=== PATIENT | female | born 1980 | race Caucasian/White ===

== ENCOUNTER 2024-08-25 12:31 | Emergency (ER) | payer BC, SELFPAY ==
[2024-08-25 12:33] VITALS: BP 118/81
[2024-08-25 12:50] LABS: % Basophils 0.7 % (0-2); % Immature Granulocytes 0.2 % (0-0.5); % Monocytes 7.3 % (1.7-9.3); % Neutrophils 49.8 % (42.2-75.2); Absolute Lymphocytes 1.7 10^3/uL (1.2-3.4); Absolute Monocytes 0.3 10^3/uL (0.1-0.6); Hematocrit 38.8 % (37.0-47.0); Hemoglobin 13.2 g/dL (12.0-16.0); Mean Corpuscular Hgb 30.5 pg (27.0-31.0); Mean Corpuscular Volume 89.6 fL (81.0-99.0); Mean Platelet Volume 9.2 fL (7.4-10.4); Nucleated Red Blood Cells % 0 %; Platelet Count 313 10^3/uL (130-400); Red Blood Cell Count 4.33 10^6/uL (4.20-5.40); Red Cell Dist. Width 13.2 % (11.5-14.5); White Blood Cell Count 4.1 10^3/uL (4.8-10.8)
[2024-08-25 12:59] LABS: APTT 27.6 Sec (23.4-35.0); INR 0.94; PT 12.9 Sec (11.4-14.6)
[2024-08-25 13:07] LABS: ALT (SGPT) 23 U/L (0-35); AST (SGOT) 31 U/L (14-36); Albumin 4.2 g/dl (3.5-5.0); Alkaline Phosphatase 60 U/L (38-126); Blood Urea Nitrogen 10 mg/dl (7-17); Calcium 9.2 mg/dl (8.4-10.2); Carbon Dioxide 26 mmol/L (22-30); Chloride 101 mmol/L (98-107); Glucose 93 mg/dl (70-99); Potassium 4.1 mmol/L (3.5-5.1); Sodium 134 mmol/L (135-145); Total Protein 6.8 g/dl (6.3-8.2); eGFR > 60.00
[2024-08-25 13:18] LABS: Troponin I < 0.012 ng/ml
[2024-08-25 15:26] VITALS: BP 107/73
--- NOTE | 2024-08-25 16:02 | ED.GENMED ---
History of Present Illness
General
Chief Complaint: Chest Pain
Time Seen by Provider: 08/25/24 16:02
History of Present Illness
History of Present Illness:
TIME OF INITIAL ENCOUNTER: 4 PM
HPI: Over the past 4 days, the patient has been having palpitations. She also describes a vague chest discomfort. She has a little bit of a cough. She was treated for bronchitis with amoxicillin, then azithromycin, as well as Tessalon Perles in
the recent past.
EXAM:
GENERAL: Well appearing in no distress, occasional cough
HEENT: Moist oral mucosa
CARDIOVASCULAR: No murmurs, normal heart rate, regular rhythm, No chest wall tenderness
PULMONARY: No respiratory distress, breath sounds are clear and equal, there is no wheeze, she is moving air very well
ABDOMEN: Soft with no peritoneal signs, no tenderness
NEUROLOGIC: Excellent strength all extremities, no coordination deficits
PSYCHIATRIC: Appropriate mental status, normal insight and judgement, appears anxious
EXTREMITIES: Nontender, no edema, moves all extremities equally
SKIN: No rash, no lesions
NUMBER AND COMPLEXITY OF PROBLEMS ADDRESSED AT THE ENCOUNTER
� Chronic conditions affecting care: Hyperlipidemia, ADHD, ASD repair 2019
� Acute Exacerbation and/or Progression of Chronic Illness: This is an acute problem
� Differential Diagnosis includes: Anxiety, electrolyte abnormality, low suspicion for PE, ACS very unlikely, reactive airway disease she was treated for bronchitis with
AMOUNT AND/OR COMPLEXITY OF DATA TO BE REVIEWED AND ANALYZED
� I performed an independent evaluation of and my interpretation is:
EKG: Sinus 67, normal axis, no acute ST abnormality
CT:
X-rays: Chest x-ray by my read shows no acute abnormality.
Laboratory Studies: CBC unremarkable, chemistries unremarkable, troponin less than 0.012
Other:
� Review of other/old records: No old records available for review in [facility]
� Clinical information was obtained by an independent historian: None needed
� Prescriptions/Medications Considered but not given:
� Further testing considered but not performed:
RISK OF COMPLICATIONS AND/OR MORBIDITY OR MORTALITY OF PATIENT MANAGEMENT
� Social determinants of health affecting care: Lives at home
� Discussion with other providers:
� Escalation of care including admission/observation vs risk of discharge considered: The patient appears somewhat anxious. Borderline tachycardia upon arrival therefore D-dimer was obtained. Breath sounds are clear. Room air
sats are normal.
ANY OTHER UPDATES:
5:30 PM on reassessment, D-dimer also negative. I do question the possibly of an anxiety component. Although lungs are clear, she does have a intermittent cough and I suspect there may be a component of bronchitis. She has been on azithromycin
and amoxicillin without any improvement. Highly doubt bacterial infection, will add albuterol inhaler.
Phy Exam
Physical Exam
Physical Exam:
See HPI
Scores
Heart Score for Chest Pain Patients
STEMI patient?: Not applicable
Course
Orders/Labs/Results
Orders:
Orders
08/25/24 12:36
Electrocardiogram (*1) Urgent
Reason for Study: Chest Pain
EKG- Treatment ONCE
08/25/24 12:41
Complete Blood Count/With Diff Urgent
Comprehensive Metabolic Panel Urgent
D-Dimer Urgent
Comment: ADD ON
Protime/PTT Urgent
Troponin I Urgent
08/25/24 16:09
Add On- LAB Urgent
Tests Added?: ddimer
08/25/24 16:10
CR Chest - 2 Views Urgent
Comment:
Reason For Exam: sob
Abnormal Lab Results
08/25/24
12:41
WBC 4.1 L 10^3/uL
(4.8-10.8)
Sodium 134 L mmol/L
(135-145)
08/25/24 12:41
08/25/24 12:41
Vital Signs
Initial and Last Documented VS:
Initial Vital Signs
Temp Pulse Resp BP Pulse Ox
36.8 C 100 18 118/81 100
08/25/24 12:33 08/25/24 12:33 08/25/24 12:33 08/25/24 12:33 08/25/24 12:33
Last Documented Vital Signs
Temp Pulse Resp BP Pulse Ox
36.8 C 97 17 107/73 99
08/25/24 12:33 08/25/24 15:26 08/25/24 15:26 08/25/24 15:26 08/25/24 15:26
*Critical Care Note
Total Time (30-74mins, 75-104mins- exclusive of procedures): Not Applicable
ED Attending Note
-
Portions of this chart may have been created with voice recognition software.� Occasional wrong word or��sound alike� substitutions may have occurred due to the inherent limitations of voice recognition software.
Discharge Plan
Departure
Patient Disposition: Home (Routine Discharge)
Date of Disposition: 08/25/24
Time of Disposition: 17:26
Patient with high blood pressure during this ER visit?: Yes
Discharge Problem:
Palpitations
Instructions: Palpitations
Prescriptions:
New
albuterol sulfate 90 mcg/actuation HFA aerosol inhaler
2 puff inhalation Q6H PRN (Reason: shortness of breath or wheezing) Qty: 8.5 0RF
Referrals:
UNKNOWN - PT DOES,NOT KNOW [Family Provider] -
Activity Restrictions/Additional Instructions:
The cause of your symptoms is unclear. There is no sign of pneumonia, blood clot, heart attack, or any other abnormality. We can try albuterol inhaler. I am sending this to your pharmacy.
Interventions
Interventions:
*Risk Screen - Suicide Last Done: 08/25/24 12:33
*General Assessment Last Done: 08/25/24 12:33
*Neglect/Abuse Screening Last Done: 08/25/24 12:33
*ED COVID-19 Vaccine History Last Done: 08/25/24 12:33
Discharge Date and Time
Print Language: [id number]
[2024-08-25 16:58] LABS: D-Dimer < 0.27 ug/mlFEU (0.00-0.50)
[2024-08-25 17:52] VITALS: BP 110/78
== END 2024-08-25 17:54 | disposition home or self-care (01) ==
LOC: EMR 12:31
PROVIDERS: Emergency Medicine; EMERGENCY PHYSICIAN Emergency Medicine
DX: R00.2 Palpitations (principal); R03.0 Elevated blood-pressure reading, without diagnosis of hypertension
CPT/HCPCS: 99285; 71046; 80053; 84484; 85025; 85379; 85610; 85730; 93005